=== PATIENT | male | born 1975 | race Caucasian/White ===

== ENCOUNTER 2024-07-02 07:18 | Emergency (ER) | payer BC, SELFPAY ==
[2024-07-02 07:21] VITALS: BP 140/83
--- NOTE | 2024-07-02 07:45 | ED.GENMED ---
History of Present Illness
General
Chief Complaint: Fainting/Passed Out
Time Seen by Provider: 07/02/24 07:44
History of Present Illness
History of Present Illness:
TIME OF INITIAL ENCOUNTER: 7:45 AM
HPI: The patient comes in because of a syncopal event. This morning, the patient had some GI upset and tried to have a bowel movement. He was straining on the toilet but did not have a bowel movement. As he got up, he collapsed to the ground.
indicates that he appeared diaphoretic and was ill-appearing with poor color. His symptoms quickly improved however. He never had any chest pain. Recently he had URI type of symptoms with nasal congestion over the past couple of weeks.
There has been an associated cough. He had pneumonia in July 2015. He does not routinely go to doctors.
EXAM:
GENERAL: Well appearing in no distress
HEENT: Moist oral mucosa
CARDIOVASCULAR: No murmurs, normal heart rate, regular rhythm, No chest wall tenderness
PULMONARY: No respiratory distress, breath sounds are clear and equal
ABDOMEN: Soft with no peritoneal signs, no tenderness
NEUROLOGIC: Excellent strength all extremities, no coordination deficits
PSYCHIATRIC: Appropriate mental status, normal insight and judgement
EXTREMITIES: Nontender, no edema, moves all extremities equally
SKIN: No rash, no lesions
NUMBER AND COMPLEXITY OF PROBLEMS ADDRESSED AT THE ENCOUNTER
� Chronic conditions affecting care: Has had pneumonia in the past but otherwise healthy
� Acute Exacerbation and/or Progression of Chronic Illness: This is an acute problem
� Differential Diagnosis includes: Vasovagal syncope, defecation syncope, dehydration, RADHA, pneumonia, viral syndrome, electrolyte abnormality
AMOUNT AND/OR COMPLEXITY OF DATA TO BE REVIEWED AND ANALYZED
� I performed an independent evaluation of and my interpretation is:
EKG: Sinus 59, no acute ST abnormality
CT:
X-rays: Chest x-ray by my read shows no acute abnormality
Laboratory Studies: White count 11.9, hemoglobin normal, chemistries unremarkable, normal renal function
Other:
� Review of other/old records: I reviewed old records, the patient was admitted for left lower lobe pneumonia and July 2015. Follow-up chest x-ray in August of that year was unremarkable.
� Clinical information was obtained by an independent historian: I spoke to the at bedside
� Prescriptions/Medications Considered but not given:
� Further testing considered but not performed:
RISK OF COMPLICATIONS AND/OR MORBIDITY OR MORTALITY OF PATIENT MANAGEMENT
� Social determinants of health affecting care: Lives at home
� Discussion with other providers:
� Escalation of care including admission/observation vs risk of discharge considered: The patient may have had a vasovagal event related to attempted defecation. Overall his vital signs are unremarkable currently. Labs are
relatively unremarkable. No abnormality noted on the monitor. No clear sign of pneumonia based on x-ray.
ANY OTHER UPDATES:
9 AM: I reassessed patient�overall feels improved after IV fluids. states that his color is much improved.
Past History
Past History
ED Past Medical History: None
ED Past Surgical History: None
Social History
Tobacco: Non-smoker
Alcohol: Occasional
Drug: None
Personal:
Living: with family
Employment: Employed
Family History
Family History: Negative Sudden
Phy Exam
Physical Exam
Physical Exam:
See HPI
Course
Orders/Labs/Results
Orders:
Orders
07/02/24 07:21
EKG [Electrocardiogram (*1)] Urgent
Reason for Study: Syncope
EKG- Treatment ONCE
07/02/24 07:57
0.9% Sodium Chloride 1000 ml [Nss] 1,000 ml IV BOLUS
CR Chest - 2 Views Urgent
Comment:
Reason For Exam: cough
07/02/24 08:10
Basic Metabolic Panel Urgent
Complete Blood Count/With Diff Urgent
Abnormal Lab Results
12/16/24
08:10
WBC 11.9 H 10^3/uL
(4.8-10.8)
RBC 4.53 L 10^6/uL
(4.70-6.10)
Abs Immat Gran (auto) 0.1 H 10^3/uL
(0-0.05)
Absolute Neuts (auto) 9.3 H 10^3/uL
(1.4-6.5)
Absolute Monos (auto) 0.7 H 10^3/uL
(0.1-0.6)
Neutrophils % 77.8 H %
(42.2-75.2)
Lymphocytes % 14.2 L %
(20.5-51.1)
Glucose 102 H mg/dl
(70-99)
07/02/24 08:10
07/02/24 08:10
Vital Signs
Initial and Last Documented VS:
Initial Vital Signs
Temp Pulse Resp BP Pulse Ox
36.9 C 56 16 140/83 100
07/02/24 07:21 07/02/24 07:21 07/02/24 07:21 07/02/24 07:21 07/02/24 07:21
Last Documented Vital Signs
Temp Pulse Resp BP Pulse Ox
36.9 C 56 10 122/83 100
07/02/24 07:21 07/02/24 09:00 07/02/24 09:00 07/02/24 09:00 07/02/24 07:21
*Critical Care Note
Total Time (30-74mins, 75-104mins- exclusive of procedures): Not Applicable
ED Attending Note
-
Portions of this chart may have been created with voice recognition software.� Occasional wrong word or��sound alike� substitutions may have occurred due to the inherent limitations of voice recognition software.
Discharge Plan
Departure
Patient Disposition: Home (Routine Discharge)
Date of Disposition: 07/02/24
Time of Disposition: 09:27
Patient with high blood pressure during this ER visit?: Yes
Discharge Problem:
Syncope and collapse
Instructions: Syncope (Fainting) (DC), BLOOD PRESSURE
Prescriptions:
No Action
cefuroxime axetil 500 MG tablet
500 mg PO BID Qty: 10 0RF
azithromycin [Zithromax] 500 MG tablet
500 mg PO DAILY Qty: 5 0RF
guaifenesin [Mucus Relief ER] 600 MG tablet extended release 12hr
600 mg PO Q12H Qty: 10 0RF
Referrals:
Tess Pike MD [Family Provider] -
Activity Restrictions/Additional Instructions:
Basic blood work is unremarkable with exception of slightly high white count. I will call you later if the radiologist sees something on the chest x-ray that I did not notice. However I do not see any signs of pneumonia like you had back in
July 2015. Your EKG is normal. We gave you 1 L of IV fluids. Return here if worse or other concerns. I also recommend following up with a primary care doctor.
Interventions
Interventions:
*Risk Screen - Suicide Last Done: 07/02/24 07:21
*General Assessment Last Done: 07/02/24 07:55
*Neglect/Abuse Screening Last Done: 07/02/24 07:21
ED- Fall Risk Assessment Last Done: 07/02/24 07:55
*ED COVID-19 Vaccine History Last Done: 07/02/24 07:21
*Nursing Disposition Last Done: 07/02/24 09:50
ED- Cardiac Assessment Last Done: 07/02/24 07:55
ED- Neurological Assessment Last Done: 07/02/24 07:55
Discharge Date and Time
Discharge Date/Time: 07/02/24 09:43
Print Language: UKRAINIAN
[2024-07-02 07:55] VITALS: BMI 29.0
[2024-07-02 08:00] VITALS: BP 118/84
[2024-07-02] MEDS: NSS 1000 IV (08:08)
[2024-07-02 08:24] LABS: % Basophils 0.3 % (0-2); % Eosinophils 1.3 % (0-6); % Immature Granulocytes 0.4 % (0-0.5); % Lymphocytes 14.2 % (20.5-51.1); % Neutrophils 77.8 % (42.2-75.2); Absolute Eosinophils 0.2 10^3/uL (0-0.7); Absolute Immature Granulocytes 0.1 10^3/uL (0-0.05); Absolute Lymphocytes 1.7 10^3/uL (1.2-3.4); Absolute Monocytes 0.7 10^3/uL (0.1-0.6); Absolute Neutrophils 9.3 10^3/uL (1.4-6.5); Hematocrit 40.9 % (39.0-52.0); Hemoglobin 13.7 g/dL (13.0-18.0); Mean Corp Hgb Conc. 33.5 g/dL (33.0-37.0); Mean Corpuscular Hgb 30.2 pg (27.0-31.0); Mean Corpuscular Volume 90.3 fL (80.0-94.0); Mean Platelet Volume 9.7 fL (7.4-10.4); Nucleated Red Blood Cells % 0 % (-); Platelet Count 275 10^3/uL (130-400); Red Blood Cell Count 4.53 10^6/uL (4.70-6.10); Red Cell Dist. Width 11.8 % (11.5-14.5); White Blood Cell Count 11.9 10^3/uL (4.8-10.8)
[2024-07-02 08:43] LABS: Blood Urea Nitrogen 16 mg/dl (9-20); Calcium 8.9 mg/dl (8.4-10.2); Carbon Dioxide 30 mmol/L (22-30); Chloride 102 mmol/L (98-107); Estimated Creatinine Clearance 99 ml/min; Glucose 102 mg/dl (70-99); Potassium 4.3 mmol/L (3.5-5.1); Sodium 140 mmol/L (135-145); eGFR > 60.00
[2024-07-02 09:00] VITALS: BP 122/83
== END 2024-07-02 09:43 | disposition home or self-care (01) ==
LOC: EMR 07:18
PROVIDERS: EMERGENCY PHYSICIAN Emergency Medicine; FAMILY PHYSICIAN Family Medicine
DX: R55 Syncope and collapse (principal); Z87.01 Personal history of pneumonia (recurrent)
CPT/HCPCS: 99283; 96360; 71046; 80048; 85025; 93005